=== PATIENT | female | born 1950 | race Asian ===

== ENCOUNTER 2017-11-05 14:58 | Emergency (ER) | payer OTHER ==
--- NOTE | 2017-11-05 15:18 | EDPHY ---
H & P Time Seen by Provider: 11/05/17 15:02 HPI/ROS: HPI Right ankle injury. 67-year-old female by private vehicle with her family. This patient was walking down a steep snow embankment when she slipped and inverted her right ankle. She complains of isolated pain and swelling to the lateral aspect of the right ankle. She did not fall to the ground. She did not hit her head. No other complaints. ROS: Constitutional: No fever, no chills. No weakness. Musculoskeletal: No back pain. No neck pain. As above. Skin: No lacerations or abrasions. Neurological: No focal weakness or altered sensation. Past medical history: She denies any significant past medical history. No medications. No allergies to medications. Social history: Here with family. She is [place]. She speaks Mandarin [place] only but her son and grandson speaking Klish and are able to translate. Physical Exam: General Appearance: Alert, no distress. This patient is responding to questions appropriately and in full sentences. This patient appears well- hydrated and well-nourished. Head: Normocephalic atraumatic. Eyes: Pupils equal and round no pallor or injection. No lid edema, erythema or injection. Right foot and ankle exam: Significant for an isolated swelling to the lateral malleolus with tenderness on palpation to this area. No bony crepitus, deformity or step-off noted on palpation of this area. No ecchymosis. She has no tenderness on palpation of the proximal fibula. The bony aspects of the foot are nontender on palpation. The right lower extremity is neurovascularly intact. Neurological: Motor sensory function is grossly intact. Cranial nerves are normal. Gait is normal. Skin: Warm and dry, no rashes. Musculoskeletal: Neck is supple and nontender. Extremities are symmetrical. All joints range without pain or impingement. Psychiatric: No agitation. No depression. Database: EKG: Imaging: Right ankle x-ray series: Significant for a spiral distal fibular fracture with minimal displacement. Interpreted by me. Procedures: Emergency department course: Vital signs reviewed. Patient consents for x-rays of the right ankle. 3:55 p.m., patient re-evaluated. Results of ankle x-ray and diagnosis of distal fibular fracture discussed. Need for orthopedic follow-up and management discussed with the patient and family with her full understanding. The patient was placed in an orthopedic cast boot. She was instructed on crutch usage and nonweightbearing. Plan will be to have her follow up with Orthopedics in 2-3 days for re-evaluation and further management. She will be nonweightbearing because of the potential instability of this fracture given that it is above joint of the ankle and likely has syndesmosis injury. Return to emergency department precautions reviewed with patient and family. Ibuprofen dosing discussed. All the patient's questions were answered. She was discharged in good condition with family. Differential Diagnosis: The differential diagnosis on this patient includes but is not limited to right ankle sprain. Fracture, subluxation, dislocation of the right ankle unlikely. This represents a partial list of diagnoses considered. These considerations are based on history, physical exam, past history, reassessment and diagnostic testing. Constitutional: Initial Vital Signs Temperature (C) 36.9 C 11/05/17 15:10 Heart Rate 61 11/05/17 15:10 Respiratory Rate 16 11/05/17 15:10 Blood Pressure 145/85 H 11/05/17 15:10 O2 Sat (%) 95 11/05/17 15:10 O2 Delivery Mode Room Air Allergies/Adverse Reactions: No Known Allergies Allergy (Unverified 11/05/17 15:26) Home Medications: Medication Instructions Recorded Calcium 11/05/17 Departure - Departure Disposition: Home, Routine, Self-Care Clinical Impression: Right ankle sprain, Fracture of distal end of fibula Condition: Good Instructions: Ankle Fracture (ED) Additional Instructions: Read and follow provided instructions. Follow-up with Orthopedics, Dr. Maury Ronquillo or 1 of his partners, in 2-3 days for re-evaluation. Call his office Tuesday morning for appointment time. Explain this is for an emergency department follow-up for an ankle fracture. Your to be non weight-bearing to your right ankle until cleared by Orthopedics. Ibuprofen dosin mg every 6 hours with meals for the next 3 days only. Take only as needed for pain. Return to the emergency department for worsening pain, swelling, discoloration, loss of sensation or other serious concerns. Referrals: Maury Ronquillo MD [Medical Doctor] - As per Instructions
[2017-11-05 15:26] VITALS: RESP 16; TEMP 98.4; O2SAT 95
[2017-11-05 17:12] VITALS: BP 140/82; PULSE 65
== END 2017-11-05 16:50 | disposition home or self-care (01) ==
LOC: CED 14:58
DX: S82.831A Other fracture of upper and lower end of right fibula, initial encounter for closed fracture (principal); S93.401A Sprain of unspecified ligament of right ankle, initial encounter; X58.XXXA Exposure to other specified factors, initial encounter; Y99.8 Other external cause status; Y93.01 Activity, walking, marching and hiking
CPT/HCPCS: 73610-PO; L4386